=== PATIENT | male | born 2000 | race Caucasian/White ===

== ENCOUNTER 2023-08-17 21:39 | Emergency (ER) | payer OTHER, SELFPAY ==
--- NOTE | ~2023-08-17 | CT_ITS ---
EXAMINATION: CT brain wo con DATE: 08/17/2023 22:20 INDICATION: periorbital ecchymosis/HAS DIGEORGE SYNDROME/DUCTIS ATERIOSI . TECHNIQUE: Computed tomography (CT) of the head was performed without intravenous contrast. The mA wa s adjusted according to patient size. Iterative reconstruction technique was employed. The dose-lengt h product was 681.00 mGy-cm. COMPARISON: None. FINDINGS: Mild motion artifact. No acute intracranial hemorrhage or extra-axial fluid collection. No hydrocephalus, mass, or herniation. No acute ischemic infarct. Unremarkable dural venous sinus attenuation. No acute osseous abnormality. The aerated spaces are clear. Extensive focal, linear, and patchy areas of hyperdensity, likely calcification based on overall dens ity, involving the bilateral basal ganglia, subcortical white matter, and cerebellar white matter. IMPRESSION: No acute intracranial process. Extensive bilateral basal ganglia and cerebral and cerebellar white matter hyperdensities, presumably calcifications, of uncertain clinical significance but possibly related to the history of DiGeorge s yndrome. Comparison to outside studies and/or MRI of the brain would be helpful for further evaluatio n. Reviewed, dictated and finalized at location [facility] [employer] IMPRESSION: No acute intracranial process. Extensive bilateral basal ganglia and cerebral and cerebellar white matter hype rdensities, presumably calcifications, of uncertain clinical significance but p ossibly related to the history of DiGeorge syndrome. Comparison to outside stud ies and/or MRI of the brain would be helpful for further evaluation.
[2023-08-17 21:42] VITALS: BP 144/99; PULSE 112; RESP 18; TEMP 36.8; O2SAT 99
--- NOTE | 2023-08-17 21:44 | ED.GENADULT ---
HPI - General Adult General Chief complaint: Unspecified Stated complaint: eye irritation Source: patient Mode of arrival: ambulatory History of Present Illness HPI narrative: 23-year-old male with a history of DiGeorge syndrome, status post cardiac surgery, multiple cardiac caths, TAVR 6 months ago, hypocalcemia on supplemental calcium, history of recurrent infections, eczema presents to the ER with acute onset -- periorbital erythema which appears to have come up in the past few hours. No history of trauma. No pain. No itching. Onset (ago): hour(s) ( In the last 3 hours) Location: eyes ( periorbital ecchymosis) Relieving factors: none Exacerbating factors: none Associated symptoms: denies other symptoms Related Data Home Medications Medication Instructions Recorded Confirmed Tums 1,000 mg PO BID 08/17/23 08/17/23 aspirin 81 mg chewable tablet 81 mg PO DAILY 08/17/23 08/17/23 calcitriol 1 mcg/mL oral solution 1 mcg PO DAILY 08/17/23 08/17/23 (Rocaltrol) Allergies Allergy/AdvReac Type Severity Reaction Status Date / Time acetaminophen Allergy Swelling Verified 08/17/23 22:00 Review of Systems Review of Systems: All systems reviewed & are unremarkable except as noted in HPI and below Constitutional: Constitutional: Reports as per HPI and Reports no additional constitutional complaints Eyes: Eyes: Reports as per HPI and Reports no additional eye complaints ENT: Reports system reviewed and no additional complaints, except as documented and Reports as per HPI Cardiovascular: Cardiovascular: Reports as per HPI and Reports no additional cardiovascular complaints Respiratory: Respiratory: Reports as per HPI and Reports no additional respiratory complaints Gastrointestinal: Gastrointestinal: Reports as per HPI and Reports no additional gastrointestinal complaints Genitourinary: Genitourinary: Reports no additional male genitourinary complaints Musculoskeletal: Musculoskeletal: Reports no additional musculoskeletal complaints and Reports as per HPI Integumentary/Breasts: Skin/Breast: Reports system reviewed and no additional complaints, except as docu, Reports as per HPI and Reports new lesions Comments: chronic erythematous rash in his right calf vital fossa and appearance of new periorbital scaly lesions. Neurologic: Reports system reviewed and no additional complaints, except as documented and Reports as per HPI Psychiatric: Psychiatric: Reports no additional psychiatric complaints and Reports as per HPI Endocrine: Endocrine: Reports no additional endocrine complaints and Reports as per HPI Hematologic/Lymphatic: Hematologic/Lymphatic: Reports no additional hematologic/lymphatic complaints and Reports as per HPI Allergic/Immunologic: Allergic/Immunologic: Reports urticaria [facility] Past Medical History Medical History (Updated 08/17/23 @ 23:02 by Buck Kerr MD) Hypocalcemia Surgical History Surgical History (Updated 08/17/23 @ 22:10 by Buck Kerr MD) S/P TAVR (transcatheter aortic valve replacement) Status post cardiac surgery Exam Narrative: blood pressure is 144/99 with a heart rate of 112 Const: General: cooperative, cachectic and underweight Nutritional Appearance: thin Orientation/consciousness: oriented to person, oriented to place and oriented to time Limitations: altered mental status HENMT: Head: normal to inspection, No palpable skull fracture present, normocephalic and atraumatic Ears: hearing grossly normal bilaterally, external ears normal and TM's normal bilaterally Face/Nose/Sinus: Normal external nose present and Normal nares present Face and sinus: normal facial exam, sinuses nontender and face symmetric Mouth: Yes Normal oral and palatal mucosa present, Yes lip normal and Yes tongue normal Eyes: General: appearance normal, both eyes and all related structures Visual High: normal visual high by confrontation Alignment and Position: alignme
[2023-08-17 22:16] LABS: Basophils Absolute Auto 0.02 K/mm3 (0.00-0.10); Basophils Percent Auto 0.3 % (0.0-1.0); Eosinophils Absolute Auto 0.11 K/mm3 (0.02-0.50); Eosinophils Percent Auto 1.7 % (1.0-6.0); Hematocrit 37.9 % (40.0-54.0); Hemoglobin 12.9 g/dL (14.0-18.0); Immature Granulocyte Absolute 0.02 K/mm3 (0.00-0.00); Immature Granulocyte Percent A 0.3 % (0.0-0.0); Immature Platelet Fraction Pct 12.7 % (1.0-7.0); Lymphocytes Percent Auto 15.5 % (18.0-42.0); Mean Corpuscular Hemoglobin 31.2 pg (27.0-31.0); Mean Corpuscular Volume 91.5 fL (78.0-102.0); Mean Platelet Volume 13.8 fl (8.7-11.0); Monocytes Absolute Auto 0.49 K/mm3 (0.10-0.90); Monocytes Percent Auto 7.6 % (2.0-11.0); Neutrophils Absolute Auto 4.8 K/mm3 (1.7-7.2); Neutrophils Percent Auto 74.6 % (50.0-70.0); Platelet Count Result 93 K/mm3 (150-420); Red Blood Count 4.14 M/mm3 (4.70-6.10); Red Cell Distribution Width 13.3 % (11.6-14.4); White Blood Count 6.4 K/mm3 (4.8-10.8)
[2023-08-17 22:28] LABS: INR 1.1; Partial Thromboplastin Time 25.4 SEC (23.90-30.70); Prothrombin Time 11.7 Seconds (9.50-12.10)
[2023-08-17 22:40] LABS: Lactic Acid Reflex 1.1 mmol/L (0.4-2.0)
[2023-08-17 22:47] LABS: Alanine Aminotransferase 16 U/L (16-63); Albumin Level 4.4 g/dL (3.4-5.0); Alkaline Phosphatase 58 U/L (46-116); Anion Gap 8 mmol/L (8-16); Aspartate Amino Transferase 12 U/L (15-37); Bilirubin,Total 0.5 mg/dL (0.00-1.00); Blood Urea Nitrogen 14 mg/dL (7-18); Carbon Dioxide 33 mmol/L (21-32); Chloride 98 mmol/L (98-108); Estimated Glomerular Filt Rate 60; Glucose 108 mg/dL (70-99); Osmolality Calculated 289 mOsm/kg (285-295); Potassium 3.3 mmol/L (3.5-5.1); Sodium 139 mmol/L (136-145); Total Protein 7.7 g/dL (6.4-8.2)
[2023-08-17 22:49] LABS: Calcium 12.9 mg/dL (8.5-10.1)
[2023-08-17 22:50] LABS: CRP < 0.5 mg/dL (0.0-0.9); Thyroid Stimulating Hormone 1.87 uIU/mL (0.36-3.74); Troponin I 7.8 ng/L (0.00-60.4)
[2023-08-17 22:55] LABS: Appearance Urine Clear (Clear); Bilirubin Urine Negative (Negative); Blood Urine Negative (Negative); Glucose Urine UA Negative (Negative); Ketones Urine Negative (Negative); Leukocyte Esterase Ur 1+ LEU/UL (Negative); Nitrate Urine Negative (Negative); Protein Urine Negative (Negative); Urobilinogen Urine 0.2 mg/dL (0.2-1.0)
[2023-08-17 22:59] VITALS: BP 133/87; PULSE 104; RESP 18; TEMP 36.8; O2SAT 99
[2023-08-17 22:59] LABS: Add Urine Microscopic? YES; Bacteria Urine Trace /hpf; Color Urine Yellow (Yellow); RBC Urine 0-2 /hpf (0-2); Squamous Epithelial Cell Urine Rare /hpf (Few); WBC Urine 0-3 /hpf (0-3)
[2023-08-17 23:18] LABS: Erythrocyte Sedimentation Rate 28 mm/hr (0-15)
--- NOTE | 2023-08-20 13:07 | PC.NURSE ---
urine culture reviewed, no growth
== END 2023-08-17 23:17 | disposition home or self-care (01) ==
PROVIDERS: Emergency Provider Internal Medicine Critical Care Medicine; PCP Pediatrics
DX: L30.9 Dermatitis, unspecified (principal); D69.6 Thrombocytopenia, unspecified; E83.52 Hypercalcemia; N18.2 Chronic kidney disease, stage 2 (mild); Z79.82 Long term (current) use of aspirin
CPT/HCPCS: 36415; 70450; 80053; 81001; 83605; 84443; 84484; 85025; 85055; 85610; 85652; 85730; 86140; 87086; 99284

== ENCOUNTER 2025-01-30 15:05 | Outpatient (RCR) | payer OTHER, SELFPAY ==
--- NOTE | 2025-01-30 16:18 | OPREHPOC ---
Outpatient Therapy Plan of Care This is a Multidisciplinary Plan of Care that may contain components documented by all disciplines (PT, OT, and ST.) PT Problem 1 PT Problem #1 Knowledge Deficit PT Goal 1 Goal / Goal Update The patient, with his father's help, will be independent in a home exercise program core and hip strengthening. Target Visit 2 PT Problem 2 PT Problem #2 Impaired Functional Mobility PT Goal 1 Goal / Goal Update The patient and his father will continue to report no regression in ADL's and no back pain. Target Visit 2
--- NOTE | 2025-01-30 16:18 | PTOPEVAL1 ---
Assessment and note entered by Grace Freeman, PT Evaluation Information Assessment Status Evaluation Diagnosis Scoliosis, DiGeorge Syndrome Other ICD-10 Condition Codes ( M41.00, D82.1, Q25.6 PT) Subjective Information Severino Delgado presents with his dad who reports he saw a new doctor recently and he recommended he go to PT for strength for his scoliosis. Severino does not speak much and his father reports he was born with scoliosis as well as DiGeorge syndrome. 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 He tried bracing for the scoliosis several times when he was younger however, he didn't tolerate it and would not wear the brace. He has not had surgery for scoliosis and his scoliosis curve has not changed. He denies pain and his father reports he has not had a decline in any of his functional abilities. His father reports he has a little trouble with bending over but is otherwise doing well. He is independent in toileting, bathing, and grooming. He denies difficulty with stairs, getting out of chairs, getting out of bed, and with lifting. 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 He mostly non-verbal and his father is present for the evaluation. His father reports he started seeing a new doctor and was referred to PT for his scoliosis. He has not had a change in functional abilities and is not having pain. He demonstrates a moderate left lumbar convexity and right thoracic convexity scoliotic curvature with a left rib hump and mild deficits in core and hip strength. He was educated in a home exercise program to address these deficits. Plan of Care Interventions Patient/Caregiver Education,Therapeutic Activities ,Therapeutic Exercise,Self-Care/Home Management PT Services Indicated Yes Treatment Frequency and 1 time a week for 2 visits Duration These treatments will address the objective and functional deficits as defined above. The patient will be advanced safely and appropriately in order for the patient to progress towards his/her prior level of function. Additional exercises will be introduced and as well as a comprehensive home exercise program upon discharge, if needed, ?to ensure carryover of functional gains achieved in the clinic. This treatment plan has been reviewed and agreement upon by the patient.
--- NOTE | 2025-02-06 15:39 | PCPTNOTE ---
Patient called & cancelled scheduled appointment this date due to unable to make it in. -Grace Freeman, PT
--- NOTE | 2025-02-13 15:51 | OPREHPOC ---
Outpatient Therapy Plan of Care This is a Multidisciplinary Plan of Care that may contain components documented by all disciplines (PT, OT, and ST.) PT Problem 1 PT Problem #1 Knowledge Deficit PT Goal 1 Goal / Goal Update The patient, with his father's help, will be independent in a home exercise program core and hip strengthening. Target Visit 2 Progress Met PT Problem 2 PT Problem #2 Impaired Functional Mobility PT Goal 1 Goal / Goal Update The patient and his father will continue to report no regression in ADL's and no back pain. Target Visit 2 Progress Met
--- NOTE | 2025-02-13 15:51 | PTOPDC ---
Assessment and note entered by Grace Freeman, PT Evaluation Information Assessment Status Discharge Diagnosis Scoliosis, DiGeorge Syndrome Other ICD-10 Condition Codes ( M41.00, D82.1, Q25.6 PT) Subjective Information Severino Delgado presents with his dad who reports he has been performing exercises at home. He continues to have no back or neck pain and his functional status has not changed. Reported Pain Level Pain Score 0: Self Report Assessment PT Clinical Summary Severino Delgado has completed 2 skilled PT visits for scoliosis. His dad continues to report he is not having pain and has had no change in his functional status. He demonstrates independence in the previous exercises instructed to him on his first visit. He was progressed with new exercises today for core, upper body, and lower body strengthening. He has met his goals for PT and will be discharged to an independent home exercise program. Plan of Care PT Services Indicated No
== END 2025-02-13 20:00 | disposition home or self-care (01) ==
LOC: CHSPT 15:05
PROVIDERS: Visit Provider Physical Medicine & Rehabilitation
DX: M41.00 Infantile idiopathic scoliosis, site unspecified (principal); D82.1 Di George's syndrome; Q25.6 Stenosis of pulmonary artery
CPT/HCPCS: 97110; 97162